=== PATIENT | female | born 1935 | race Caucasian/White ===

== ENCOUNTER 2017-11-27 03:46 | Observation (INO) | payer OTHER ==
[~2017-11-27] VITALS: Ht 170.2 cm; Wt 68.2 kg
[~2017-11-27 03:46] MED LIST: ASPIR 8181 M1 PO; ASPIRIN EC325 MG PO; AZOPT 1% O200 DROP/1 BOTH EYES; Aspirin PO; BUSPAR15 MG PO; CATAPRES0.1 MG PO; CLONIDINE HCL0.1 MG PO; CLONIDINE1 EACH TD; COZAAR100 MG PO; Catapres PO; FISH OIL CONC1 EACH PO; FLOMAX0.4 MG PO; Inderal PO; LEXAPRO5 MG PO; Lopid PO; MURO-128 OPHTH3.5 GM; MURO-128 OPHTH3.5 GM BOTH EYES; NIFEDIAC CC90 MG PO; OMEGA-31000 MG PO; PERCOCET 5/31 TABLET PO; PriLOSEC PO; Procardia XL,Adalat PO; VITAMIN D1000 INTUN PO; VITAMIN D1000 UNIT; Vitamin D PO; XANAX0.25 MG PO; XANAX0.5 MG PO; Xanax PO; ZOFRAN4 MG PO
[2017-11-27 04:58] LABS: HEMATOCRIT 46.9 % (36.0-46.0); HEMOGLOBIN 15.7 G/DL (11.9-15.5); MCH 29.6 PG (29.0-34.0); MCHC 33.5 G/DL (30.0-36.0); MCV 88.5 FL (83-99); PLATELET COUNT 282 K/uL (156-360); RBC DIS.WIDTH-CV 13.1 % (11.8-14.6); RBC DIS.WIDTH-SD 42.5 % (39-53)
[2017-11-27 05:08] LABS: ALBUMIN 4.1 g/dL (3.2-4.8); CHLORIDE 106 mEq/L (99-109); POTASSIUM 3.3 mEq/L (3.7-5.4); SODIUM 140 mEq/L (136-147)
[2017-11-27 05:11] LABS: GLUCOSE 165 mg/dL (70-99); TOTAL PROTEIN 7.2 g/dL (6.4-8.3)
[2017-11-27 05:13] LABS: TOTAL BILIRUBIN 0.4 mg/dL (0.0-1.0)
[2017-11-27 05:14] LABS: ALKALINE PHOSPHATASE 86 IU/L (3-129); CREATININE 0.8 mg/dL (0.6-1.3); GFR ESTIMATE (CALCULATED) > 59 mL/min/
[2017-11-27 05:15] LABS: UREA NITROGEN (BUN) 10 mg/dL (9-23)
[2017-11-27 05:16] LABS: AST (GOT) 18 IU/L (2-34)
[2017-11-27 05:17] LABS: ALT (GPT) 25 IU/L (3-49)
[2017-11-27 05:18] LABS: LIPASE 6 U/L (1.0-51.0); TROP-I INTERPRETATION NEGATIVE; TROPONIN-I < 0.01 ng/mL (0.0-0.30)
[2017-11-27] MEDS ORDERED: ASPIRIN81 M2 PO (08:42)
[2017-11-27 09:23] LABS: APPEARANCE CLEAR ((CLEAR)); BILIRUBIN NEGATIVE; BLOOD NEGATIVE; COLOR STRAW ((YELLOW)); GLUCOSE (STRIP) 50; KETONES 5; LEUKOCYTES NEGATIVE; NITRITE NEGATIVE; PROTEIN (STRIP) NEGATIVE; SPECIFIC GRAVITY 1.009 (1.000-1.030); UCUL ADDED? NO; UROBILINOGEN 0.2 MG/DL (0.2-1.0)
[2017-11-27 10:28] VITALS: BP 183/81
[2017-11-27 11:19] LABS: TROP-I INTERPRETATION NEGATIVE; TROPONIN-I < 0.01 ng/mL (0.0-0.30)
[2017-11-27 11:41] VITALS: BP 188/86
[2017-11-27 16:55] VITALS: BP 179/81
[2017-11-27 19:30] VITALS: BP 189/86
[2017-11-27 21:56] LABS: THYROTROPIN (TSH) 2.3 MIU/L (0.4-5.5)
[2017-11-27 23:58] VITALS: BP 138/92
[2017-11-28 05:13] VITALS: BP 146/67
[2017-11-28 05:53] LABS: BASOPHIL (%) 0.3 % (0-1); EOSINOPHIL (%) 0.3 % (0-5); HEMATOCRIT 45.1 % (36.0-46.0); HEMOGLOBIN 14.9 G/DL (11.9-15.5); IMMATURE GRANULOCYTE (%) 0.5 % (0.0-0.7); LYMPHOCYTE (%) 15.3 % (15-42); LYMPHOCYTE COUNT 1.7 K/uL (1.0-2.8); MCV 87.9 FL (83-99); MONOCYTE (%) 8.5 % (3-12); MONOCYTE COUNT 0.9 K/uL (0-0.8); NEUTROPHIL (%) 75.1 % (45-76); NEUTROPHIL COUNT 8.1 K/uL (1.8-6.4); PLATELET COUNT 298 K/uL (156-360); RBC DIS.WIDTH-CV 13.2 % (11.8-14.6); RBC DIS.WIDTH-SD 42.9 % (39-53); RED BLOOD COUNT 5.13 M/uL (3.80-5.20); WHITE BLOOD COUNT 10.8 K/uL (4.1-10.2)
[2017-11-28 06:16] LABS: CHLORIDE 109 MEQ/L (99-109); CREATININE 0.7 MG/DL (0.6-1.3); GFR ESTIMATE (CALCULATED) > 59 mL/min/; GLUCOSE 126 mg/dL (70-99); POTASSIUM 3.7 MEQ/L (3.7-5.4); SODIUM 140 MEQ/L (136-147); UREA NITROGEN (BUN) 11 mg/dL (9-23)
[2017-11-28 07:50] VITALS: BP 157/75; BP 161/57
[2017-11-28 09:10] VITALS: BP 163/76
[2017-11-28 11:20] VITALS: BP 133/75
== END 2017-11-28 13:47 | disposition home or self-care (01) ==
LOC: EME 03:46 → EDOF 08:58 → ENRESERV 09:16 → EDOF 09:24 → ENRESERV 09:27 → 5WEST 10:15
PROVIDERS: Emergency Medicine; Internal Medicine
DX: R55 Syncope and collapse (principal); I49.1 Atrial premature depolarization; E87.6 Hypokalemia; D72.829 Elevated white blood cell count, unspecified; R19.7 Diarrhea, unspecified; I10 Essential (primary) hypertension; E78.5 Hyperlipidemia, unspecified; E21.3 Hyperparathyroidism, unspecified; F41.9 Anxiety disorder, unspecified; Z87.442 Personal history of urinary calculi; K21.9 Gastro-esophageal reflux disease without esophagitis; M85.80 Other specified disorders of bone density and structure, unspecified site; Z85.828 Personal history of other malignant neoplasm of skin; Z90.49 Acquired absence of other specified parts of digestive tract; Z79.82 Long term (current) use of aspirin
CPT/HCPCS: 70450; 71020; 80048; 80053; 81003; 83690; 84443; 84484; 85025; 85027; 93005; 99281; 99285; G0378; J0360; J1650; J2765; J7030